=== PATIENT | male | born 1990 | race Caucasian/White ===

== ENCOUNTER 2020-11-21 10:00 | Outpatient (CLI) | payer OTHER, SELFPAY ==
[~2020-11-21] VITALS: Ht 160 cm; Wt 72.6 kg
== END 2020-11-21 11:00 | disposition home or self-care (01) ==
LOC: SLB 10:00 → EDSTATUS 11-25 08:45
PROVIDERS: ATTEND Otolaryngology
DX: Z01.812 Encounter for preprocedural laboratory examination (principal); Z20.822 Contact with and (suspected) exposure to COVID-19; D38.5 Neoplasm of uncertain behavior of other respiratory organs; J34.2 Deviated nasal septum; J30.1 Allergic rhinitis due to pollen
CPT/HCPCS: U0003

== ENCOUNTER 2020-12-02 06:05 | Day surgery (SDC) | payer OTHER, SELFPAY ==
[2020-12-02] MEDS ORDERED: METOCLOPRAMIDE HCL 10 MG/2 ML VIAL IVP PRN (08:30)
[2020-12-02] MEDS ORDERED: ONDANSETRON HCL 4 MG/2 ML VIAL IVP PRN (08:30)
[2020-12-02] MEDS ORDERED: fentaNYL CITRATE/PF 100 MCG/2 ML AMP IVP PRN ×2 (08:30)
[2020-12-02] MEDS ORDERED: NS IRRIG SOLN 1000 ML IR ONE (10:55)
[2020-12-02] MEDS ORDERED: ONDANSETRON HCL 4 MG/2 ML VIAL ONE (10:55)
[2020-12-02] MEDS ORDERED: fentaNYL CITRATE/PF 100 MCG/2 ML AMP ONE (10:55)
[2020-12-02] MEDS ORDERED: DEXAMETHASONE SOD PHOSPHATE 4 MG/ML VIAL ONE (10:55)
[2020-12-02] MEDS ORDERED: LR 1,000 ML IV.SOLN IV ONE (10:55)
[2020-12-02] MEDS ORDERED: MIDAZOLAM HCL 5 MG/ML VIAL (VERSED) IV ONE (10:55)
[2020-12-02] MEDS ORDERED: EPINEPHrine 1 MG/ML VIAL ONE (10:55)
[2020-12-02] MEDS ORDERED: PROPOFOL 200MG/ 20ML VIAL (DIPRIVAN) IV ONE (10:55)
[2020-12-02] MEDS ORDERED: SEVOFLURANE 15 MIN GAS INH ONE (10:55)
[2020-12-02] MEDS ORDERED: MUPIROCIN 2% TOPICAL OINTMENT 22 GM ONE (10:55)
[2020-12-02] MEDS ORDERED: WATER FOR IRRIGATION,STERILE 1,000 ML IRRIG.SOLN IR ONE (10:55)
[2020-12-02] MEDS ORDERED: ROCURONIUM BROMIDE 10 MG/ML (ZEMURON) ONE (10:55)
[2020-12-02] MEDS ORDERED: LIDOCAINE/EPI 1% 1:100000 20 ML VIAL INJ ONE (10:55)
[2020-12-02 14:33] VITALS: BP_SYST 112
== END 2020-12-02 13:40 | disposition home or self-care (01) ==
LOC: SDS 06:05 → SMU 06:08 → SDS 13:40
PROVIDERS: ATTEND Otolaryngology
DX: J34.2 Deviated nasal septum (principal); D38.5 Neoplasm of uncertain behavior of other respiratory organs; R09.81 Nasal congestion; J30.1 Allergic rhinitis due to pollen; Z88.2 Allergy status to sulfonamides; Z79.899 Other long term (current) drug therapy
CPT/HCPCS: 36415; 87070; 87070-TC; 87075-TC; 87101; 87252; 88304; 88305; 88311; J0171; J1100; J2250; J2405; J2704; J3010; J7120